=== PATIENT | female | born 1995 | race African-American/Black ===

== ENCOUNTER 2017-04-11 16:35 | Emergency (ER) | payer OTHER ==
[~2017-04-11] VITALS: Ht 167.6 cm; Wt 70.3 kg
[~2017-04-11 16:35] MED LIST: NOHOMEMEDICATIONS
[2017-04-11 17:34] LABS: URINE BLOOD NEGATIVE (Negative); URINE CLARITY CLEAR; URINE COLOR YELLOW; URINE GLUCOSE-RANDOM* NEGATIVE (Negative); URINE KETONES 2+ (Negative); URINE LEUKOCYTES 1+ (Negative); URINE NITRITE NEGATIVE (Negative); URINE PROTEIN (DIPSTICK) TRACE (Negative); URINE SPECIFIC GRAVITY 1.025 (1.005-1.035); URINE UROBILINOGEN 0.2 E.U./dl (0.2-1.0)
[2017-04-11 17:43] LABS: ICTOTEST (BILI CONFIRMATORY) Negative (Negative); URINE BILIRUBIN NEGATIVE (Negative)
[2017-04-11 17:59] LABS: BACTERIA None Seen /HPF (None Seen); CASTS None Seen /LPF (None Seen); CRYSTALS None Seen /LPF (None Seen); MUCUS >6 Heavy strn/LPF (None Seen); SQUAMOUS >10 Many /LPF (0-3); URINE RBC 0-2 Rare /HPF (0-2)
[2017-04-11] MEDS ORDERED: MACROBID 100 M100 M1 PO (21:19)
[2017-04-11] MEDS ORDERED: ONDANSETRON HCL4 M2 PO (21:19)
[2017-04-11 22:11] VITALS: BP 105/66
[2017-07-02] MEDS ORDERED: MOBIC15 MG PO (13:40)
[2017-07-02] MEDS ORDERED: HYDROCODONE-AP1 EAC6 PO (13:40)
[2017-11-06] MEDS ORDERED: REGLAN 10 MG TA10 MG PO (23:06)
[2017-11-06] MEDS ORDERED: KEFLEX500 M1 PO (23:12)
== END 2017-04-11 22:12 | disposition home or self-care (01) ==
LOC: ER 16:35
PROVIDERS: Physician Assistant
DX: O46.8X1 Other antepartum hemorrhage, first trimester (principal); O23.41 Unspecified infection of urinary tract in pregnancy, first trimester; J45.909 Unspecified asthma, uncomplicated; F17.210 Nicotine dependence, cigarettes, uncomplicated; Z3A.01 Less than 8 weeks gestation of pregnancy; Z88.0 Allergy status to penicillin

== ENCOUNTER 2020-06-08 21:41 | Emergency (ER) | payer OTHER ==
[~2020-06-08] VITALS: Ht 167.6 cm; Wt 86.2 kg
[~2020-06-08 21:41] MED LIST changes: +HYDROCODONE-AP1 EAC6 PO; +KEFLEX500 M1 PO; +MACROBID 100 M100 M1 PO; +MOBIC15 MG PO; +ONDANSETRON HCL4 M2 PO; +REGLAN 10 MG TA10 MG PO
[2020-06-09] MEDS ORDERED: FLEXERIL PO (00:29)
[2020-06-09] MEDS ORDERED: IBU600 MG PO (00:29)
[2020-06-09 00:49] VITALS: BP 111/73
== END 2020-06-09 00:49 | disposition home or self-care (01) ==
LOC: ER 21:41
DX: S13.4XXA Sprain of ligaments of cervical spine, initial encounter (principal); S90.31XA Contusion of right foot, initial encounter; J45.909 Unspecified asthma, uncomplicated; F17.210 Nicotine dependence, cigarettes, uncomplicated; Z88.0 Allergy status to penicillin; W18.39XA Other fall on same level, initial encounter; Y93.89 Activity, other specified; Y92.89 Other specified places as the place of occurrence of the external cause; Y99.8 Other external cause status

== ENCOUNTER 2020-09-23 18:19 | Emergency (ER) | payer OTHER ==
[~2020-09-23] VITALS: Ht 167.6 cm; Wt 81.7 kg
[~2020-09-23 18:19] MED LIST changes: +FLEXERIL PO; +IBU600 MG PO
[2020-09-23] MEDS ORDERED: DOXYCYCLINE 10100 MG PO (19:35)
[2020-09-23 19:40] VITALS: BP 104/66
== END 2020-09-23 19:54 | disposition home or self-care (01) ==
LOC: ER 18:19
DX: L03.116 Cellulitis of left lower limb (principal); J45.909 Unspecified asthma, uncomplicated; F17.210 Nicotine dependence, cigarettes, uncomplicated; Z88.0 Allergy status to penicillin

== ENCOUNTER 2021-04-19 15:59 | Emergency (ER) | payer OTHER ==
[~2021-04-19] VITALS: Ht 167.6 cm; Wt 83.9 kg
[~2021-04-19 15:59] MED LIST changes: +DOXYCYCLINE 10100 MG PO
[2021-04-19] MEDS ORDERED: CEPHALEXIN500 MG PO (17:05)
[2021-04-19 17:21] VITALS: BP 118/80
== END 2021-04-19 17:21 | disposition home or self-care (01) ==
LOC: ER 15:59
DX: L02.412 Cutaneous abscess of left axilla (principal); J45.909 Unspecified asthma, uncomplicated; F17.210 Nicotine dependence, cigarettes, uncomplicated; F12.90 Cannabis use, unspecified, uncomplicated; Z98.890 Other specified postprocedural states; Z79.899 Other long term (current) drug therapy; Z88.0 Allergy status to penicillin

== ENCOUNTER 2021-04-24 09:57 | Emergency (ER) | payer OTHER ==
[~2021-04-24] VITALS: Ht 170.2 cm; Wt 83.9 kg
[~2021-04-24 09:57] MED LIST changes: +CEPHALEXIN500 MG PO
[2021-04-24 10:31] VITALS: BP 108/65
== END 2021-04-24 11:22 | disposition left against medical advice (07) ==
LOC: ER 09:57
DX: L02.412 Cutaneous abscess of left axilla (principal); J45.909 Unspecified asthma, uncomplicated; Z53.21 Procedure and treatment not carried out due to patient leaving prior to being seen by health care provider; Z98.890 Other specified postprocedural states